=== PATIENT | female | born 1995 | race Caucasian/White ===

== ENCOUNTER → 2016-09-20 | Outpatient (CLI) | payer OTHER ==
--- NOTE | 2016-09-21 07:28 | DIAGNOSTIC IMAGING REPORT ---
LEFT SHOULDER 3 VIEWS HISTORY: LEFT SHOULDER PAIN COMPARISON: None. FINDINGS: There is no fracture or dislocation. Soft tissues are unremarkable. Left clavicle is intact. IMPRESSION: Unremarkable left shoulder. Electronically signed by: Fred Sparrow M.D. 09/21/2016 7:26 AM Dictated Date/Time: 09/21/2016 7:25 AM
== END | disposition home or self-care (01) ==
LOC: C.RDSM 13:00
PROVIDERS: ATTEND Family Medicine
DX: M25.512 Pain in left shoulder (principal)

== ENCOUNTER → 2016-10-19 | Outpatient (CLI) | payer OTHER ==
--- NOTE | 2016-10-19 11:25 | DIAGNOSTIC IMAGING REPORT ---
FLUOROSCOPICALLY GUIDED LEFT SHOULDER ARTHROGRAM PRIOR TO MRI CLINICAL HISTORY: Left shoulder pain. COMPARISON STUDY: Left shoulder radiographs September 20, 2016. FLUOROSCOPY TIME: 0.3 minutes. PROCEDURE: 1 fluoroscopic image was obtained. The procedure, risks and benefits were discussed with the patient. The patient agreed to the procedure and informed written consent was obtained. The procedure was performed by Dr. Grullon following a timeout. Skin overlying the left glenohumeral joint was prepped and draped in sterile fashion and local anesthesia was achieved with 1% lidocaine. Under intermittent fluoroscopic guidance, a 2 and 1/2 inch, 22-gauge needle was directed into the left glenohumeral joint. Positioning within the joint space was confirmed with a small amount of contrast. At this time, 9 cc of a mixture of 0.05 cc of Gadavist, 10 cc of normal saline and 10 cc of Optiray 300 was injected into the left glenohumeral joint. The needle was removed. The patient tolerated the procedure well and no immediate complications were evident. The patient was transported to MRI. IMPRESSION: Fluoroscopically guided left shoulder arthrogram prior to MRI. Electronically signed by: Jagjit Grullon M.D. 10/19/2016 11:24 AM Dictated Date/Time: 10/19/2016 11:22 AM
--- NOTE | 2016-10-19 12:02 | DIAGNOSTIC IMAGING REPORT ---
MRI left shoulder LEFT UPPER EXTREMITY JOINT W/ CLINICAL HISTORY: L SHOULDER PAIN pain TECHNIQUE: MRI multi axial acquisition Post shoulder arthrography COMPARISON STUDY: None FINDINGS: Signal characteristics of the osseous structures are unremarkable throughout. There is no significant bone marrow replacing process. The structures the rotator cuff are intact. There is no evidence for rotator cuff tear. Biceps tendon is intact within the bicipital groove. Evaluation of the glenoid labrum shows complete tear of the anterior margin of the labrum. There is a small linear extension to the anterior inferior labral margin. Posterior labrum appears to be intact with only slight truncation. IMPRESSION: 1. Complete tear anterior glenoid labrum with hairline extension to the anterior inferior labral margin. 2. Several very small loose bodies are present. 3. Remainder of the study including rotator cuff is intact. Electronically signed by: Jaxon Currie M.D. 10/19/2016 12:00 PM Dictated Date/Time: 10/19/2016 11:52 AM
== END | disposition home or self-care (01) ==
LOC: C.MRI 09:37
PROVIDERS: ATTEND Family Medicine
DX: S43.492A Other sprain of left shoulder joint, initial encounter (principal); X58.XXXA Exposure to other specified factors, initial encounter; M24.012 Loose body in left shoulder